=== PATIENT | female | born 2000 | race Caucasian/White ===

== ENCOUNTER 2020-10-20 11:04 | Emergency (ER) | payer OTHER, MEDICAID, SELFPAY ==
[2020-10-20 11:06] VITALS: BP 121/84; PULSE 76; RESP 18; TEMP 36.6; O2SAT 100; BMI 23.8
--- NOTE | 2020-10-20 11:24 | CT_ITS ---
STUDY: CT BRAIN WITHOUT CONTRAST REASON FOR EXAM: Female, 20 years old. Trauma RADIATION DOSAGE (If Supplied By Facility): CTDIvol = ( 44.99 ) mGy, DLP = ( 745.49 ) mGycm TECHNIQUE: Transaxial CT imaging of the brain was performed without administration of intravenous contrast material. Individualized dose optimization techniques were used for this CT. COMPARISON: No relevant priors. FINDINGS: Normal soft tissue structures. Normal calvarium. Normal size ventricles and extra-axial spaces for the patient''s age. Normal white matter tracts of the cerebral hemispheres. Normal basal ganglia and thalami. Normal brainstem. Normal cerebellum. There is no intracranial hemorrhage. There are no findings of an acute ischemic infarction. Normal visualized paranasal sinuses. CT/Brain/Head without Contrast IMPRESSION: Normal unenhanced CT scan of the brain. Electronically Signed: Mikey Davis MD at 12:03 EST , Service support ,
--- NOTE | 2020-10-20 12:37 | ED.VIS.GEN ---
History of Present Illness Chief Complaint: Head Injury Narrative: Patient presenting secondary to complications from a head injury. Patient states about 5 days ago she suffered a head injury where she was standing up and struck her head very forcibly on a metal first-aid box that was mounted on the wall. She denies that she had any loss of consciousness associated with this but since then she has had an onset of persistent nausea headaches, fogginess, photophobia, and generalized fatigue. Patient states that she has been unable to return to work secondary to the symptoms. Patient does report that she has a history of migraines but this does not really seem consistent with that. She is not on any sort of anticoagulants. She was not seen by medical provider at the time of the injury. Past Medical History - Allergies and Home Meds Allergies/Adverse Reactions: Allergies lactose Allergy (Verified 10/20/20 11:05) Upset Stomach red dye Allergy (Verified 10/20/20 11:05) [facility] Primary Care Physician: RACHEL GOFF [Other] Prior records reviewed: Yes Past Medical History: - - Psychiatric issues, migraine headaches Smoking Status: Never smoker Alcohol: None Drugs: None Review of Systems All systems negative except as indicated General: Denies: Chills, Fever, Sweats Eyes: Reports: Blurred Vision - bilaterally ENT: Denies: Rhinorrhea, Sore throat Cardiovascular: Denies: Chest pain, Palpitations Respiratory: Denies: Dyspnea, Cough, Dyspnea on exertion Gastrointestinal: Reports: Nausea, Vomiting Genitourinary: Denies: Dysuria, Hematuria, Frequency Musculoskeletal: Denies: Back pain, Extremity Pain Skin: Denies: Rash, Wounds Neurological: Reports: Headache Physical Exam Vital Signs/Narrative: Vital Signs Temp Pulse Resp BP Pulse Ox 10/20/20 11:06 97.9 F 76 18 121/84 H 100 Inital Vital Signs reviewed: Yes General: Well nourished, Well developed, No Acute Distress Head: Normocephalic, Atraumatic Eyes: Perrl, EOMI ENT: Moist mucous membranes, No rhinorrhea Neck: Supple, Nontender Cardiovascular: Regular rate, Regular rhythm, No murmurs Respiratory: No distress, CTA bilaterally, Chest nontender Abdomen: Soft, Nontender, Nondistended, Normal bowel sounds Back: Nontender, Normal Inspection Extremities: Nontender, No edema Skin: Normal color, No rash Neurological: Alert, Oriented x3, Cranial nerves II-XII grossly intact, Normal Strength, Normal Sensation Psychological: Normal affect, Normal Mood Diagnostic/Tx/Re-eval Clinical Impression(s) from Imaging Studies Brain CT 10/20/20 11:24 IMPRESSION: Normal unenhanced CT scan of the brain. Electronically Signed: Mikey Davis MD at 12:03 EST , Service support , - Medical Decision Making Patient presented secondary to a head injury. CT imaging of the brain was obtained secondary to the patient having a small area of continued reproducible pain and concern for the possibility of occult skull fracture. This was found to be negative. Patient at this point has an element of postconcussive syndrome. She was recommended brain and physical rest. Patient will be given [facility]er's Comp. and neurology due to her postconcussive syndrome. ED Disposition - Plan for ED Patient: Disposition: Home or Assisted Living Diagnosis: Post concussion syndrome Instructions: ED Concussion Referrals: Bello Lomeli MD [STAFF PHYSICIAN] - As soon as possible Additional Instructions: Follow-up with neurology and the [facility]
[2020-10-20 12:49] VITALS: BP 120/74; PULSE 62; RESP 15; O2SAT 97
== END 2020-10-20 12:50 | disposition home or self-care (01) ==
PROVIDERS: Emergency Provider Emergency Medicine
DX: F07.81 Postconcussional syndrome (principal)
CPT/HCPCS: 70450; 99282